=== PATIENT | male | born 1990 | race Caucasian/White ===

== ENCOUNTER 2022-08-07 11:17 | Emergency (ER) | payer MEDICAID ==
[~2022-08-07] VITALS: Ht 167.6 cm; Wt 105.0 kg
[2022-08-07] MEDS ORDERED: METF-873 MT (12:33)
[2022-08-07 12:52] VITALS: BP 116/75
== END 2022-08-07 12:55 | disposition home or self-care (01) ==
LOC: ER 11:30
DX: Z76.0 Encounter for issue of repeat prescription (principal); E11.9 Type 2 diabetes mellitus without complications
CPT/HCPCS: 99283